=== PATIENT | female | born 1940 | race Caucasian/White ===

== ENCOUNTER → 2018-02-19 | Outpatient (CLI) | payer MEDICARE, OTHER | LOC: GMAJS 14:15 | PROVIDERS: ATTEND Physician Assistant | DX: M79.672 Pain in left foot (principal) ==

== ENCOUNTER → 2018-09-11 | Outpatient (CLI) | payer MEDICARE, OTHER | LOC: GMAJ 10:45 | PROVIDERS: ATTEND Family Medicine | DX: M10.9 Gout, unspecified (principal) ==

== ENCOUNTER → 2019-03-24 | Outpatient (CLI) | payer MEDICARE, OTHER | LOC: GMAJ 10:58 | PROVIDERS: ATTEND Family Medicine | DX: M10.9 Gout, unspecified (principal); I10 Essential (primary) hypertension ==

== ENCOUNTER → 2019-11-11 | Outpatient (CLI) | payer MEDICARE, OTHER | LOC: GMAJ 11:33 | PROVIDERS: ATTEND Family Medicine | DX: M10.9 Gout, unspecified (principal) ==

== ENCOUNTER → 2020-05-25 | Outpatient (CLI) | payer MEDICARE, OTHER | LOC: GMAJ 14:44 | PROVIDERS: ATTEND Family Medicine | DX: M10.072 Idiopathic gout, left ankle and foot (principal); I10 Essential (primary) hypertension ==